=== PATIENT | female | born 1970 | race Caucasian/White ===

== ENCOUNTER 2024-12-23 09:56 | Outpatient (OUT) | payer OTHER, SELFPAY ==
--- NOTE | 2024-12-23 | XR_ITS ---
The [address] [address] Patient Name: SUJATHA HAQUE MRN: [id number] date: 1970 Sex: F Assigned Patient Location: [facility] Current Patient Location: [facility] Accession/Order Number: [id number] Exam Date: 12/23/2024 10:00 Report Date: 12/23/2024 10:36 At the request of: CRISTINO DOYLE DO Procedure: XR shoulder RT min 2V RIGHT SHOULDER - 4 views CLINICAL HISTORY: M25.511 pain in right shoulder for the past 2 months and decreased range of motion. No injury. COMPARISON: None AP, Y, Grashey and Grashey views were obtained. There is no evidence of fracture or dislocation. There is minor hypertrophy at the acromioclavicular joint. There are no significant soft tissue abnormalities. XR/XR shoulder RT min 2V IMPRESSION: NO ACUTE BONY FINDINGS. Impression dictated by: Celia Cotton M.D. 12/23/2024 10:36 AM Dictation Location: [place] [address] Electronically authenticated by: [id number] Y Date: 12/23/2024 10:36
--- OUTSIDE RECORDS SUMMARY | 2024-12-23 09:57 | XMS_ITS | Clinical Summary ---
Author Organization [facility] Address [address] [place] [place] [address] Care Team Providers Care Surveyor Chain Helper Name Role Phone Barbara Slater MD Primary Care Provider [phone] Allergies No known active allergies Medications escitalopram (Lexapro) 10 MG tablet 01/16/2023 Active Beyaz 3-0.02-0.451 MG (Prior Auth: Rx Ref#:[id number]) Oral for 90 Active Multiple Vitamin (Multi Vitamin Daily) tablet 1 (one) time each day at the same time. Active Active Problems No known active problems Family History Medical History Relation Name Comments Diabetes Father Hussain Charles Cancer Sister Elsy Nick Relation Name Status Comments Father Hussain Charles Sister Elsy Nick Social History Tobacco Use Types Packs/Day Years Used Date Smoking Tobacco: Never Smokeless Tobacco: Never Alcohol Use Standard Drinks/Week Comments Not Currently 0 (1 standard drink = 0.6 oz pur e alcohol) Holidays or celebrations Comments Unknown Sex and Gender Information Value Date Recorded Sex Assigned at Not on file Legal Sex Female 7:16 PM EDT Gender Identity Not on file Sexual Orientation Not on file Last Filed Vital Signs Vital Sign Reading Time Taken Comments Blood Pressure 123/83 12/17/2018 12:00 PM EDT Pulse - - Temperature 36.2 C (97.2 F) 02/26/2023 4:32 PM EST Respiratory Rate - - Oxygen Saturation - - Inhaled Oxygen Concentration - - Weight 85.3 kg (188 lb) 02/26/2023 4:32 PM EST Height 162.6 cm (5' 4 ) 02/26/2023 4:32 PM EST Body Mass Index 32.27 02/26/2023 4:32 PM EST Plan of Treatment Not on file Insurance [employer] Care Teams Surveyor Chain Helper Relationship Specialty Start Date End Date Barbara Slater MD PCP - General Family Medicine 01/14/23
== END 2024-12-23 09:57 | disposition home or self-care (01) ==
LOC: RAD 09:56
PROVIDERS: PCP Family Medicine; Visit Provider Physician Assistant
DX: M25.511 Pain in right shoulder (principal)
CPT/HCPCS: 73030